=== PATIENT | male | born 1990 | race Caucasian/White ===

== ENCOUNTER 2019-01-23 11:58 | Emergency (ER) | payer MEDICAID, OTHER ==
[2019-01-23 12:57] VITALS: BP 123/68
--- NOTE | 2019-01-23 13:15 | UC ---
Throat Pain/Nasal Dom HPI - HPI Summary HPI Summary: COUGH / HEADACHES X 3 DAYS MILD SORE THROAT, CONGESTION JUST NOT FEELING WELL, ACHY ALL OVER DENIES ANY FEVER, + CHILLS NO PHOTOPHOBIA , NO N/V/D/C , NO ABDOMINAL PAIN NO URINARY SX - History of Current Complaint Chief Complaint: Wing Stated Complaint: HEADACHE RUNNY NOSE NAUSEA SORE THROAT Time Seen by Provider: 01/23/19 13:06 Hx Obtained From: Patient Onset/Duration: Gradual Onset, Lasting Days - 3, Still Present Severity: Moderate Pain Intensity: 5 Cough: Nonproductive Associated Signs & Symptoms: Positive: Sinus Discomfort. Negative: Dysphagia, FB Sensation, Drooling, Wheezing, Hoarseness, Nasal Discharge, Fever, Vomiting, Rash - Allergies/Home Medications Allergies/Adverse Reactions: Allergies Allergy/AdvReac Type Severity Reaction Status Date / Time dextromethorphan AdvReac Vomiting Verified 01/23/19 12:48 Home Medications: Home Medications Aspirin TAB* [Aspirin 325 MG TAB*] 325 mg PO ONCE 01/23/19 [History Confirmed ] Lisdexamfetamine Dimesylate [Vyvanse] 30 mg PO DAILY 01/23/19 [History Confirmed 01/23/19] Loratadine [Claritin 10 MG CAP] 10 mg PO DAILY 01/23/19 [History Confirmed 01/23] PMH/Surg Hx/FS Hx/Imm Hx Previously Healthy: Yes - Surgical History Surgical History: Yes Surgery Procedure, Year, and Place: Sinus Surgeries x 2 - Family History Known Family History: Positive: Cardiac Disease - Social History Alcohol Use: Occasionally Substance Use Type: Marijuana Substance Use Comment - Amount & Last Used: once per week Smoking Status (MU): Former Smoker Have You Smoked in the Last Year: Yes - yes, marijuana When Did the Patient Quit Smoking/Using Tobacco: 2015 - Immunization History Vaccination Up to Date: Yes Review of Systems All Other Systems Reviewed And Are Negative: Yes Constitutional: Positive: Chills, Fatigue Skin: Positive: Negative Eyes: Positive: Negative. Negative: Photophobia ENT: Positive: Sore Throat, Nasal Discharge Respiratory: Positive: Cough Cardiovascular: Positive: Negative Is Patient Immunocompromised?: No Physical Exam Triage Information Reviewed: Yes Appearance: Well-Appearing, No Pain Distress, Well-Nourished Vital Signs: Initial Vital Signs Temp 98.5 F 01/23/19 12:53 Pulse 73 01/23/19 12:53 Resp 20 01/23/19 12:53 BP 123/68 01/23/19 12:53 Pulse Ox 99 01/23/19 12:53 Vital Signs Reviewed: Yes Eye Exam: Normal Eyes: Positive: Conjunctiva Clear ENT: Positive: Normal ENT inspection, Hearing grossly normal, Pharynx normal, TMs normal. Negative: TM bulging, TM dull, TM red, Tonsillar swelling, Tonsillar exudate Neck: Positive: Supple, Nontender, No Lymphadenopathy Respiratory: Positive: Chest non-tender, Lungs clear, Normal breath sounds Cardiovascular: Positive: RRR, No Murmur, Pulses Normal Abdomen Description: Positive: Nontender, Soft. Negative: CVA Tenderness (R), CVA Tenderness (L), Distended, Guarding Bowel Sounds: Positive: Present Skin Exam: Normal Throat Pain/Nasal Course/Dx - Differential Dx/Diagnosis Provider Diagnosis: Viral illness Discharge ED - Sign-Out/Discharge Documenting (check all that apply): Patient Departure All imaging exams completed and their final reports reviewed: No Studies - Discharge Plan Condition: Stable Disposition: HOME Patient Education Materials: Viral Syndrome (ED) Referrals: Gracie Van MD [Primary Care Provider] - 5 Days - Billing Disposition and Condition Condition: STABLE Disposition: Home
== END 2019-01-23 13:19 | disposition home or self-care (01) ==
LOC: UCCORT 11:58
DX: B34.9 Viral infection, unspecified (principal); R05 Cough; R51 Headache; J02.9 Acute pharyngitis, unspecified; R09.81 Nasal congestion; Z88.8 Allergy status to other drugs, medicaments and biological substances; Z79.82 Long term (current) use of aspirin; Z87.891 Personal history of nicotine dependence
CPT/HCPCS: 99211; G0463

== ENCOUNTER 2019-02-09 10:04 | Emergency (ER) | payer OTHER ==
[2019-02-09 10:37] VITALS: BP 138/79
--- NOTE | 2019-02-09 10:54 | UC ---
Eye Complaint HPI - HPI Summary HPI Summary: R eye swelling; thought it was originally a pimple when he noticed it yesterday. Pt tried "popping something", he got a hair that was in that follicle out, and some puss, but nothing else. Pt woke up this morning and the eye is much more swollen than it was last night. Pt has had a stye removed from that eye in the past. Pt states the whole R side of his face has pressure. No changes in vision. - History of Current Complaint Chief Complaint: UCEye Stated Complaint: RT EYE SWELLING Time Seen by Provider: 02/09/19 10:53 Hx Obtained From: Patient Onset/Duration: Sudden Onset, Lasting Days Timing: Constant Severity Initially: Moderate Severity Currently: Moderate Pain Intensity: 0 Location of Injury: Periorbital Associated Signs And Symptoms: Positive: Swelling - Allergies/Home Medications Allergies/Adverse Reactions: Allergies Allergy/AdvReac Type Severity Reaction Status Date / Time dextromethorphan AdvReac Vomiting Verified 02/09/19 10:38 PMH/Surg Hx/FS Hx/Imm Hx Previously Healthy: Yes - Surgical History Surgical History: Yes Surgery Procedure, Year, and Place: Sinus Surgeries x 2 - Family History Known Family History: Positive: Cardiac Disease - Social History Alcohol Use: Weekly Substance Use Type: Marijuana Substance Use Comment - Amount & Last Used: once per week Smoking Status (MU): Former Smoker Have You Smoked in the Last Year: Yes - yes, marijuana When Did the Patient Quit Smoking/Using Tobacco: 2014 - Immunization History Vaccination Up to Date: Yes Review of Systems All Other Systems Reviewed And Are Negative: Yes Skin: Positive: Other - erythema of the upper right eyelid Eyes: Positive: Other - swelling of right eye lid ENT: Positive: Sinus Congestion - sinus congestion Is Patient Immunocompromised?: No Physical Exam Triage Information Reviewed: Yes Appearance: Well-Nourished, Ill-Appearing, Pain Distress Vital Signs: Initial Vital Signs Temp 97.9 F 02/09/19 10:30 Pulse 62 02/09/19 10:30 Resp 14 02/09/19 10:30 BP 138/79 02/09/19 10:30 Pulse Ox 100 02/09/19 10:30 Vital Signs Reviewed: Yes Eyes: Positive: Other: - no discharge, or vision chenges, swelling of the eyelids and redness ENT: Positive: Nasal congestion - turbids red and inflammed Dental Exam: Normal Neck exam: Normal Respiratory Exam: Normal Cardiovascular Exam: Normal Cardiovascular: Positive: RRR, No Murmur, Pulses Normal Abdominal Exam: Normal Bowel Sounds: Positive: Present Musculoskeletal Exam: Normal Neurological Exam: Normal Psychological Exam: Normal Skin Exam: Normal Eye Complaint Course/Dx - Course Course Of Treatment: hx obtained, exam performed ,meds reviewed, treaed for periorbital cellulitis and rhinosinusitis - Differential Dx/Diagnosis Provider Diagnosis: Acute rhinosinusitis, Periorbital cellulitis of right eye Discharge ED - Sign-Out/Discharge Documenting (check all that apply): Patient Departure All imaging exams completed and their final reports reviewed: No Studies - Discharge Plan Condition: Stable Disposition: HOME Prescriptions: predniSONE [Prednisone 20 MG TAB] 40 mg PO DAILY #10 tablet Sulfamethox/Trimethoprim DS* [Bactrim DS 800/160 TAB*] 1 tab PO BID #14 tab Patient Education Materials: Periorbital Cellulitis in Adults (ED) Referrals: Gracie Van MD [Primary Care Provider] - Additional Instructions: 1. take the medication as prescribed. 2. Ice the eye before you drive home 3. FOllow up with ENT due to the swelling and pain in sinuses. 4. Warm compresses to the eye 2 times daily until antibiotics are done - Billing Disposition and Condition Condition: STABLE Disposition: Home
== END 2019-02-09 11:06 | disposition home or self-care (01) ==
LOC: UCCORT 10:04
DX: L03.213 Periorbital cellulitis (principal); J01.90 Acute sinusitis, unspecified; Z87.891 Personal history of nicotine dependence; Z88.8 Allergy status to other drugs, medicaments and biological substances
CPT/HCPCS: 99212; G0463